=== PATIENT | female | born 1990 | race Caucasian/White ===

== ENCOUNTER 2025-02-21 08:29 | Emergency (ER) | payer SELFPAY ==
--- NOTE | 2025-02-21 08:30 | ED.DENTAL ---
HPI - Dental/Oral General Chief complaint: Dental/Oral Stated complaint: tooth pain Time Seen by Provider: 02/21/25 08:30 Source: patient Mode of arrival: ambulatory Limitations: no limitations History of Present Illness HPI Narrative: Nilam is a 35-year-old female patient presenting to the clinic today with complaints of right lower posterior jaw dental pain x2 days. She reports she has had this ongoing problem for 6 months and the dentist told her that she needed her right lower wisdom teeth removed. States ever so often it gets infected and painful. Denies any fevers, chills, body aches. Does not have insurance currently and states she is going to have insurance next week and she will make a dentist appointment at that time. Has been taking off brand ibuprofen without relief. Rates her pain currently a 5/10. The pain is making her nauseous. Related Data Home Medications ?Medication ?Instructions ?Recorded ?Confirmed ?Last Taken ?Type norethindrone 1 mg-ethinyl 1 tablet PO DAILY 09/30/24 09/30/24 Unknown History estradiol 20 mcg (24)-iron 75 mg (4) tablet (Blisovi 24 Fe) Allergies Allergy/AdvReac Type Severity Reaction Status Date / Time No Known Allergies Allergy Verified 02/21/25 08:36 Review of Systems Review of Systems: Pertinent positives per HPI. Patient denies any fever, chills, rash, headache, visual changes, dizziness, cough, shortness of breath, chest pain, palpitations, nausea, vomiting, diarrhea, constipation, abdominal pain, or any urinary issues. [facility] Social History Social History Smoking packs per day: 1 Smoking cigarettes per day: 20.0 Years smoked: 19 Smoking pack-years: 19.00 Smoking status: Current every day smoker Tobacco type: cigarettes Additional smoking assessment comments: Cutting back and down to 4 cigarettes a day. Alcohol intake: former Alcohol use details: quit 2 months Substance use: former Substance use type: marijuana Last use: 2 months Do You Feel Safe in your Home?: Yes Lack of Transportation: No Lack of Food: Never True Current Housing: I Have Housing Concerned About Future Housing: No Difficulty Paying Gas/Electric Bills: No Difficulty Paying for Meds: No Currently Unemployed: No Education: High School Diploma/GED Difficulty w/ Childcare or Family Care: No Living arrangements: with family Spiritual care concerns: No Comments At the time of my signature, I reviewed and agree with the nursing past medical, surgical, social, and family history. There is no relevant family history pertinent to the patient complaint. Exam Narrative: General: Well-developed, overweight, in no apparent distress Head: Normocephalic, atraumatic Eyes: Pupils equally round and reactive to light bilaterally, EOM intact, sclera and conjunctive clear, no discharge, lids normal Ears: TMs intact and clear, ear canals clear, no drainage, grossly hearing normal. Nose: Nares patent, no discharge, no inflammation, no sinus tenderness. Mouth: Oral pharynx without lesions or masses, fair dentition, MMM. Impacted right posterior wisdom tooth with localized swelling/redness, no visible or palpable abscess Neck: Supple, trachea midline, no enlargement of anterior or posterior cervical nodes, no thyroid masses or goiter palpable. Cardio: Regular rate and rhythm, s1 and s2 normal, no murmur appreciated. Resp: Clear to auscultation bilaterally, no rhonchi, rales, wheezing or rubs Course Course Emergency Course: Portions of this record may have been created with voice recognition software. Level of Care: Express Care Visit Vital Signs Vital signs: Vital Signs Temperature 36.9 C 02/21/25 08:36 Pulse Rate 81 02/21/25 08:36 Respiratory Rate 16 02/21/25 08:36 Blood Pressure 128/84 02/21/25 08:36 Pulse Oximetry 98 02/21/25 08:36 Oxygen Delivery Room Air 02/21/25 08:36 Temperature 36.9 C 02/21/25 08:36 Pulse Rate 81 02/21/25 08:36 Respiratory Rate 16 02/21/25 08:36 Blood Pressure 128/84 02/21/25 08:36 Pulse Oximetry 98 02/21/25 08:36 Oxygen Delivery Room Air 02/21/25 08:36 Vital signs reviewed MDM - Dental/Oral MDM Narrative Medical decision making narrative: At the time of visit patient is resting comfortably on the exam table. Patient appears to be nontoxic. Dental pain x2 days-impacted right lower wisdom tooth with localized swelling and redness no palpable or visualized abscess. Plan: I suspect patient has dental pain. Prescription for amoxicillin and ibuprofen was sent to the pharmacy. Recommend following up with dentist as soon as possible. Supportive measures were discussed with the patient and they voiced understanding discharge instructions and agrees to treatment plan. Return precautions reviewed Differential Diagnosis Differential diagnosis: Likely gingival abscess, dental caries, toothache, dental abscess, fracture of tooth and aphthous ulcer Discharge Plan Discharge Clinical Impression: Toothache Patient Disposition: Home Condition: Stable Instructions: Antibiotic Form, Toothache (ED) Additional Instructions: Take medications as prescribed-amoxicillin and ibuprofen Increase fluids and stay well hydrated May take Tylenol/Motrin as needed for pain or fever May apply Orajel to the affected area to help alleviate pain May apply warm or cool compress to the affected area to help alleviate pain Follow-up with your dentist as soon as possible Patient Language: [place] Prescriptions: New amoxicillin 875 mg tablet 875 mg PO Q12H 10 Days Qty: 20 0RF ibuprofen 600 mg tablet 600 mg PO TID PRN (Reason: pain) 10 Days Qty: 30 0RF No Action Blisovi 24 Fe 1 mg-20 mcg (24)/75 mg (4) tablet 1 tablet PO DAILY Patient Comments: Says takes at 1130am daily Follow-up/Referrals: Roger Estrada DO [Primary Care Provider] - Stand Alone Forms: Work/School Release IP Time of Disposition: 08:41 Quality NIHSS Nursing Documentation ED NIHSS nursing documentation: reviewed/agree
[2025-02-21 08:36] VITALS: BP 128/84; PULSE 81; RESP 16; TEMP 36.9; O2SAT 98
== END 2025-02-21 08:45 | disposition home or self-care (01) ==
PROVIDERS: Emergency Provider Nurse Practitioner Family; PCP Family Medicine
DX: K08.89 Other specified disorders of teeth and supporting structures (principal); F17.210 Nicotine dependence, cigarettes, uncomplicated
CPT/HCPCS: 99213; G0463